=== PATIENT | male | born 1985 | race African-American/Black ===

== ENCOUNTER 2018-12-30 22:51 | Emergency (ER) | payer MEDICAID ==
[~2018-12-30] VITALS: Ht 185.4 cm; Wt 81.0 kg
[2018-12-31 00:58] VITALS: BP 132/80
== END 2018-12-31 01:02 | disposition home or self-care (01) ==
LOC: ER 22:51
DX: B07.0 Plantar wart (principal); F17.200 Nicotine dependence, unspecified, uncomplicated; F12.10 Cannabis abuse, uncomplicated; J45.909 Unspecified asthma, uncomplicated
CPT/HCPCS: 99283

== ENCOUNTER 2019-02-19 20:32 | Emergency (ER) | payer MEDICAID, OTHER ==
[~2019-02-19] VITALS: Ht 185.4 cm; Wt 84.0 kg
[2019-02-20] MEDS ORDERED: IBUPROFEN 600MG TABLET PO STA (00:38)
[2019-02-20] MEDS ORDERED: ASPIRIN 81MG TABLET PO ONE (00:45)
[2019-02-20 01:05] LABS: BASOPHILS % 0.7 % (0.0-2.0); EOSINOPHILS % 3.4 % (0.0-5.0); HEMATOCRIT. 41.9 % (42.0-52.0); LYMPHOCYTES % 36.1 % (20.0-50.0); MEAN CORPUSCULAR HEMOGLOBIN 29.3 pg (28.0-32.0); MEAN CORPUSCULAR VOLUME 87.7 fL (80.0-94.0); MEAN PLATELET VOLUME 8.4 fl (7.4-10.4); MONOCYTES % 10.7 % (2.0-8.0); NEUTROPHILS % 49.1 % (40.0-76.0); PLATELET 188 x1000/uL (130-400); RED BLOOD CELL COUNT 4.78 mill/uL (4.7-6.1); RED CELL DISTRIBUTION WIDTH 13.4 % (11.6-14.6)
[2019-02-20 01:09] LABS: CHLORIDE 108 mEq/L (98-107)
[2019-02-20 01:13] LABS: ETHANOL BLOOD < 10 mg/dL
[2019-02-20 01:25] LABS: *AMPHETAMINES SCREEN URINE NEGATIVE (NEGATIVE); *BARBITURATES SCREEN URINE NEGATIVE (NEGATIVE); *BENZODIAZEPINES SCREEN URINE NEGATIVE (NEGATIVE); *COCAINE SCREEN URINE NEGATIVE (NEGATIVE)
[2019-02-20 01:26] LABS: CANNABINOID URINE SCREEN PRESUMTIVE POSITIVE (NEGATIVE); METHADONE URINE SCREEN NEGATIVE (NEGATIVE); OPIATES URINE SCREEN NEGATIVE (NEGATIVE); PHENCYCLIDINE URINE SCREEN NEGATIVE (NEGATIVE)
[2019-02-20 01:45] VITALS: BP 101/56
== END 2019-02-20 02:19 | disposition home or self-care (01) ==
LOC: ER 20:32
DX: R07.89 Other chest pain (principal); F12.10 Cannabis abuse, uncomplicated; J45.909 Unspecified asthma, uncomplicated
CPT/HCPCS: 36415; 71045; 80053; 80305; 80320; 83690; 84484; 85025; 93005; 99284; Z7610; G0480

== ENCOUNTER 2019-03-23 05:48 | Emergency (ER) | payer MEDICAID, OTHER ==
[~2019-03-23] VITALS: Ht 185.4 cm; Wt 79.5 kg
[2019-03-23 07:48] LABS: CHLORIDE 108 mEq/L (98-107)
[2019-03-23 07:51] LABS: BASOPHILS % 0.2 % (0.0-2.0); EOSINOPHILS % 1.3 % (0.0-5.0); HEMATOCRIT. 44.1 % (42.0-52.0); HEMOGLOBIN. 14.5 g/dL (14.0-18.0); LYMPHOCYTES % 20.8 % (20.0-50.0); MEAN CORPUSCULAR HEMOGLOBIN 29.2 pg (28.0-32.0); MEAN CORPUSCULAR VOLUME 88.7 fL (80.0-94.0); MEAN PLATELET VOLUME 8.3 fl (7.4-10.4); MONOCYTES % 6.8 % (2.0-8.0); NEUTROPHILS % 70.9 % (40.0-76.0); PLATELET 176 x1000/uL (130-400); RED BLOOD CELL COUNT 4.97 mill/uL (4.7-6.1); RED CELL DISTRIBUTION WIDTH 13.3 % (11.6-14.6)
[2019-03-23] MEDS ORDERED: ASPIRIN 81MG TABLET PO ONE (08:45)
[2019-03-23 08:50] VITALS: BP 95/63
== END 2019-03-23 09:05 | disposition home or self-care (01) ==
LOC: ER 05:48
DX: R07.9 Chest pain, unspecified (principal); F12.10 Cannabis abuse, uncomplicated; F17.200 Nicotine dependence, unspecified, uncomplicated; I25.2 Old myocardial infarction; Z86.73 Personal history of transient ischemic attack (TIA), and cerebral infarction without residual deficits
CPT/HCPCS: 36415; 71045; 80053; 83880; 84484; 85025; 93005; 99284; Z7610

== ENCOUNTER 2020-04-29 01:14 | Emergency (ER) | payer MEDICAID ==
[~2020-04-29] VITALS: Ht 175.3 cm; Wt 75.0 kg
[2020-04-29] MEDS ORDERED: KETOROLAC 30MG/ML VIAL IM ONE (02:15)
[2020-04-29 02:32] VITALS: BP 122/63
== END 2020-04-29 02:33 | disposition home or self-care (01) ==
LOC: ER 01:14
DX: M62.830 Muscle spasm of back (principal); F12.10 Cannabis abuse, uncomplicated
CPT/HCPCS: 96372; 99283; J1885

== ENCOUNTER 2020-08-19 06:09 | Emergency (ER) | payer MEDICAID ==
[~2020-08-19] VITALS: Ht 182.9 cm; Wt 84.0 kg
[2020-08-19] MEDS ORDERED: LIDOCAINE HCL 1% 20ML VIAL (Pyxis) INJ INFIL ONE (08:30)
[2020-08-19] MEDS ORDERED: CEFTRIAXONE SODIUM 250 MG/VIAL IM ONE (08:30)
[2020-08-19] MEDS ORDERED: AZITHROMYCIN 500 MG TABLET PO SCH (09:00)
[2020-08-19 09:52] LABS: CLARITY URINE CLEAR (CLEAR); COLOR URINE YELLOW (YELLOW); KETONES URINE NEGATIVE (NEGATIVE); LEUKOCYTE ESTERASE URINE 1+ (NEGATIVE); NITRITE URINE NEGATIVE (NEGATIVE); OCCULT BLOOD URINE NEGATIVE (NEGATIVE); PH URINE 6.5 (4.5-8.0); PROTEIN URINE NEGATIVE (NEGATIVE); SPECIFIC GRAVITY URINE 1.024 (1.005-1.030)
[2020-08-19 10:22] VITALS: BP 118/87
== END 2020-08-19 10:23 | disposition home or self-care (01) ==
LOC: ER 06:09
DX: R31.9 Hematuria, unspecified (principal); F12.10 Cannabis abuse, uncomplicated; F17.200 Nicotine dependence, unspecified, uncomplicated; I25.2 Old myocardial infarction; Z90.49 Acquired absence of other specified parts of digestive tract
CPT/HCPCS: 81003; 93005; 96372; 99284; J0696; J3490

== ENCOUNTER 2020-09-04 00:28 | Emergency (ER) | payer MEDICAID ==
[~2020-09-04] VITALS: Ht 175.3 cm; Wt 76.0 kg
[2020-09-04 00:36] VITALS: BP 109/71
[2020-09-04] MEDS ORDERED: KETOROLAC 60MG/2ML VIAL IM STA (01:36)
== END 2020-09-04 02:59 | disposition home or self-care (01) ==
LOC: ER 00:28
DX: M54.32 Sciatica, left side (principal); I25.2 Old myocardial infarction; F12.10 Cannabis abuse, uncomplicated; Z98.890 Other specified postprocedural states
CPT/HCPCS: 96372; 99283; J1885

== ENCOUNTER 2023-01-27 21:45 | Emergency (ER) | payer MEDICAID ==
[~2023-01-27] VITALS: Ht 185.4 cm; Wt 155.0 kg
[2023-01-27 23:30] VITALS: BP 127/79
[2023-01-27] MEDS ORDERED: ACETAMINOPHEN 325MG TABLET PO ONE (23:30)
[2023-01-27] MEDS ORDERED: IBUPROFEN 400MG TABLET PO ONE (23:30)
[2023-01-28] MEDS ORDERED: IBUP-2028 MT (00:59)
== END 2023-01-28 01:15 | disposition home or self-care (01) ==
LOC: ER 21:45
DX: M79.89 Other specified soft tissue disorders (principal); F12.10 Cannabis abuse, uncomplicated
CPT/HCPCS: 29515; 99283; Z7610

== ENCOUNTER 2023-04-11 21:53 | Emergency (ER) | payer MEDICAID ==
[~2023-04-11 21:53] MED LIST: IBUP-2028 MT
[2023-04-11 22:00] VITALS: PULSE 86
== END 2023-04-12 00:26 | disposition left against medical advice (07) ==
LOC: ER 04-12 00:24
DX: Z53.21 Procedure and treatment not carried out due to patient leaving prior to being seen by health care provider (principal)

== ENCOUNTER 2023-04-17 22:11 | Emergency (ER) | payer MEDICAID ==
[~2023-04-17] VITALS: Ht 185.4 cm; Wt 99.7 kg
[2023-04-17 22:50] VITALS: BP 110/70; O2SAT 98
[2023-04-17 23:55] LABS: CLARITY URINE CLEAR (CLEAR); COLOR URINE YELLOW (YELLOW); KETONES URINE NEGATIVE (NEGATIVE); LEUKOCYTE ESTERASE URINE 1+ (NEGATIVE); NITRITE URINE NEGATIVE (NEGATIVE); OCCULT BLOOD URINE NEGATIVE (NEGATIVE); PROTEIN URINE NEGATIVE (NEGATIVE); SPECIFIC GRAVITY URINE 1.013 (1.005-1.030)
[2023-04-18] MEDS ORDERED: METRONIDAZOLE 250MG TABLET PO ONE (00:30)
[2023-04-18] MEDS ORDERED: DOXY100C5 MT (00:34)
[2023-04-18] MEDS: METRONIDAZOLE 500MG TABLET PO NR (00:40)
[2023-04-18] MEDS ORDERED: CEFTRIAXONE SODIUM 500 MG/VIAL IM ONE (00:45)
[2023-04-18] MEDS ORDERED: LIDOCAINE HCL/PF 1% 10 MG/ML 5ML VIAL INFIL ONE (00:45)
[2023-04-18 01:33] VITALS: PULSE 95; TEMP 98.2
[2023-04-21 09:07] LABS: NEISSERIA GONORRHOEAE NAA Negative (Negative)
== END 2023-04-18 00:50 | disposition home or self-care (01) ==
LOC: ER 22:11
DX: A64 Unspecified sexually transmitted disease (principal); F12.10 Cannabis abuse, uncomplicated
CPT/HCPCS: 99283; 86592; 87491; 87591; 81003; 96372; J0696; J3490

== ENCOUNTER 2023-05-14 01:47 | Emergency (ER) | payer MEDICAID ==
[~2023-05-14] VITALS: Ht 185.4 cm; Wt 98.1 kg
[~2023-05-14 01:47] MED LIST changes: +DOXY100C5 MT
[2023-05-14 02:12] VITALS: BP 120/66; PULSE 78; RESP 14; TEMP 98.3; O2SAT 98
[2023-05-14] MEDS ORDERED: ACETAMINOPHEN 325MG TABLET PO ONE (08:00)
[2023-05-14] MEDS ORDERED: KETOROLAC 60MG/2ML VIAL IM ONE (08:00)
[2023-05-14] MEDS ORDERED: GABAPENTIN 300MG CAPSULE PO SCH (08:00)
== END 2023-05-14 08:54 | disposition left against medical advice (07) ==
LOC: ER 01:47
DX: M54.9 Dorsalgia, unspecified (principal); Z53.21 Procedure and treatment not carried out due to patient leaving prior to being seen by health care provider
CPT/HCPCS: 99281